=== PATIENT | female | born 1960 | race Caucasian/White ===

== ENCOUNTER 2017-07-18 14:17 | Inpatient (IN) | payer MEDICAID ==
[~2017-07-18] VITALS: Ht 157.5 cm; Wt 77.3 kg
[2017-07-18 17:00] VITALS: BP 144/68
[2017-07-18] MEDS ORDERED: FLUT100D2 INH (17:56)
[2017-07-18] MEDS ORDERED: ALBU18HF2 INH (17:56)
[2017-07-18] MEDS ORDERED: OXYB5TAB29 PO (17:56)
[2017-07-18] MEDS ORDERED: ESCI10TA54 PO (17:56)
[2017-07-18] MEDS ORDERED: IPRA3AMP IH (17:56)
[2017-07-18 18:00] VITALS: BP 139/72
[2017-07-18] MEDS ORDERED: levoFLOXACIN-Levaquin 750MG/D5 150 ML IV STA (18:13)
[2017-07-18] MEDS ORDERED: magnesium hydroxide 30ml (MOM) UD suspension PO PRN (18:15)
[2017-07-18] MEDS ORDERED: acetaminophen 325mg tablet PO PRN (18:15)
[2017-07-18] MEDS ORDERED: mag hydrox/Alum hydrox/simeth 30ml oral suspension PO PRN (18:15)
[2017-07-18] MEDS ORDERED: ondansetron/PF 4mg/2ml inj IV PRN (18:15)
[2017-07-18] MEDS ORDERED: HYDROcodone/acetaminophen 5mg/325mg tablet PO PRN (18:15)
[2017-07-18] MEDS: HYDROcodone/acetaminophen 10/325mg tab PO PRN ×2 (19:18→23:37)
[2017-07-18] MEDS: docusate sod 100mg capsule PO SCH (19:18)
[2017-07-18 19:43] LABS: ALBUMIN 1.7 G/DL (3.4-5.0); ANION GAP 8 (8-16); BLOOD UREA NITROGEN 12 MG/DL (7-18); CALCIUM 8.8 MG/DL (8.5-10.1); CHLORIDE 106 MMOL/L (99-107); GLUCOSE 271 MG/DL (70-104); POTASSIUM 3.9 MMOL/L (3.5-5.1); SODIUM 141 MMOL/L (135-145); TOTAL CARBON DIOXIDE 26.6 MMOL/L (24-32); eGFR 74 ML/MIN
[2017-07-18 19:45] LABS: INR 0.9 INR; PARTIAL THROMBOPLASTIN TIME 26 SECONDS (22-32); PROTHROMBIN TIME 9.8 SECONDS (9.0-12.0)
[2017-07-18] MEDS: BUDESONIDE 0.25 MG/2 ML AMPUL.NEB IH SCH (23:14)
[2017-07-19] VITALS: BP 134/75
[2017-07-19] MEDS: HYDROcodone/acetaminophen 10/325mg tab PO PRN ×5 (04:31→21:42)
[2017-07-19 05:24] LABS: BASOPHILS % (AUTO) 0 % (0-1); EOSINOPHILS # (AUTO) 0.6 X10'3 (0-0.9); EOSINOPHILS % (AUTO) 1.7 % (0-6); HEMOGLOBIN 13.1 g/dl (12.0-16.0); LYMPHOCYTES % (AUTO) 5.2 % (21-51); MEAN CORPUSCULAR HEMOGLOBIN 31.4 PG (27.0-31.0); MEAN CORPUSCULAR HGB CONC 33.5 % (33.0-36.5); MEAN CORPUSCULAR VOLUME 93.6 FL (78-98); MEAN PLATELET VOLUME 9.5 FL (7.4-10.4); MONOCYTES # (AUTO) 1.2 X10'3 (0-0.9); MONOCYTES % (AUTO) 3.1 % (2-12); NEUTROPHILS # (AUTO) 34.4 X10'3 (1.8-7.7); PLATELET COUNT 424 X10'3 (140-440); RED BLOOD COUNT 4.17 X10'6 (4.20-5.60); RED CELL DISTRIBUTION WIDTH 15.1 % (11.5-14.5)
[2017-07-19 05:50] LABS: WHITE BLOOD COUNT 38.2 X10'3 (4.5-11.0)
[2017-07-19 05:55] LABS: ALBUMIN 1.7 G/DL (3.4-5.0); ANION GAP 7 (8-16); BLOOD UREA NITROGEN 15 MG/DL (7-18); BUN/CREATININE RATIO 22.4 (6.6-38.0); CALCIUM 8.9 MG/DL (8.5-10.1); CHLORIDE 108 MMOL/L (99-107); CREATININE 0.67 MG/DL (0.40-0.90); GLUCOSE 135 MG/DL (70-104); POTASSIUM 4.2 MMOL/L (3.5-5.1); SODIUM 143 MMOL/L (135-145); TOTAL CARBON DIOXIDE 28.4 MMOL/L (24-32); eGFR > 90 ML/MIN
[2017-07-19 06:35] LABS: PLATELET ESTIMATE NORMAL; TOTAL CELLS COUNTED 100
[2017-07-19 06:36] LABS: TOXIC GRANULATION 1+
[2017-07-19 07:00] VITALS: BP 114/57
[2017-07-19] MEDS ORDERED: pneumococcal 23-VAL P-sac vacc 25 mcg/0.5ml vial IMVAC ONE (08:00)
[2017-07-19] MEDS: oxybutynin 5mg tablet PO SCH ×2 (08:20→20:04)
[2017-07-19] MEDS: docusate sod 100mg capsule PO SCH ×2 (08:20→20:04)
[2017-07-19] MEDS: citalopram 20mg tablet PO SCH (08:22)
[2017-07-19] MEDS: vancomycin/NS 1 GM ADD-VANTAGE 250 ML IV SCH ×2 (08:22→20:04)
[2017-07-19 11:24] VITALS: BP 114/67
[2017-07-19] MEDS: BUDESONIDE 0.25 MG/2 ML AMPUL.NEB IH SCH ×2 (12:41→20:00)
[2017-07-19] MEDS ORDERED: LIDOcaine 1%/PF (10mg/ml) 5ml vial ONE (14:41)
[2017-07-19] MEDS: levoFLOXACIN-Levaquin 750MG/D5 150 ML IV SCH (17:34)
[2017-07-19 20:00] VITALS: BP 118/66
[2017-07-19] MEDS: ipratropium/albuterol 3ml nebule NEB SCH ×2 (20:00→23:23)
[2017-07-19] MEDS: lactobacillus rhamnosus 10,000 MMU CELLS/CAPSULE PO SCH (20:04)
[2017-07-20] VITALS: BP 122/67
[2017-07-20] MEDS: ipratropium/albuterol 3ml nebule NEB SCH ×6 (03:08→23:50)
[2017-07-20] MEDS: HYDROcodone/acetaminophen 10/325mg tab PO PRN ×5 (04:40→21:38)
[2017-07-20 05:27] LABS: BASOPHILS % (AUTO) 0.2 % (0-1); EOSINOPHILS # (AUTO) 0.5 X10'3 (0-0.9); EOSINOPHILS % (AUTO) 2.3 % (0-6); HEMATOCRIT 39.7 % (35.0-45.0); HEMOGLOBIN 13.1 g/dl (12.0-16.0); LYMPHOCYTES # (AUTO) 2.7 X10'3 (1.1-4.8); LYMPHOCYTES % (AUTO) 12.4 % (21-51); MEAN CORPUSCULAR HEMOGLOBIN 30.9 PG (27.0-31.0); MEAN CORPUSCULAR HGB CONC 32.9 % (33.0-36.5); MEAN CORPUSCULAR VOLUME 93.7 FL (78-98); MEAN PLATELET VOLUME 9.1 FL (7.4-10.4); MONOCYTES # (AUTO) 1.3 X10'3 (0-0.9); MONOCYTES % (AUTO) 5.8 % (2-12); NEUTROPHILS # (AUTO) 17.4 X10'3 (1.8-7.7); NEUTROPHILS % (AUTO) 79.3 % (42-75); PLATELET COUNT 471 X10'3 (140-440); RED BLOOD COUNT 4.24 X10'6 (4.20-5.60)
[2017-07-20 05:41] LABS: ALANINE AMINOTRANSFERASE 18 U/L (12-78); ALBUMIN 1.5 G/DL (3.4-5.0); ALBUMIN/GLOBULIN RATIO 0.3 (1.1-1.5); ALKALINE PHOSPHATASE 106 IU/L (46-116); ANION GAP 7 (8-16); ASPARTATE AMINO TRANSFERASE 14 U/L (10-37); BILIRUBIN,TOTAL 0.2 MG/DL (0.1-1.0); BLOOD UREA NITROGEN 17 MG/DL (7-18); BUN/CREATININE RATIO 22.7 (6.6-38.0); CALCIUM 8.2 MG/DL (8.5-10.1); CHLORIDE 105 MMOL/L (99-107); CREATININE 0.75 MG/DL (0.40-0.90); GLUCOSE 107 MG/DL (70-104); POTASSIUM 3.4 MMOL/L (3.5-5.1); SODIUM 141 MMOL/L (135-145); TOTAL CARBON DIOXIDE 29.3 MMOL/L (24-32); TOTAL PROTEIN 5.8 G/DL (6.4-8.2); eGFR 80 ML/MIN
[2017-07-20 07:00] VITALS: BP 122/59
[2017-07-20] MEDS ORDERED: VANCOMYCIN LEVEL IV ONE (07:30)
[2017-07-20] MEDS: BUDESONIDE 0.25 MG/2 ML AMPUL.NEB IH SCH ×2 (08:13→20:51)
[2017-07-20] MEDS: levoFLOXACIN-Levaquin 750MG/D5 150 ML IV SCH (08:49)
[2017-07-20] MEDS: lactobacillus rhamnosus 10,000 MMU CELLS/CAPSULE PO SCH ×2 (08:50→19:51)
[2017-07-20] MEDS: oxybutynin 5mg tablet PO SCH ×2 (08:51→19:52)
[2017-07-20] MEDS: citalopram 20mg tablet PO SCH (08:51)
[2017-07-20] MEDS: docusate sod 100mg capsule PO SCH ×2 (08:51→19:52)
[2017-07-20] MEDS: vancomycin/NS 1 GM ADD-VANTAGE 250 ML IV SCH (09:58)
[2017-07-20 11:35] VITALS: BP 123/106
[2017-07-20] MEDS ORDERED: LIDOcaine 1%/PF (10mg/ml) 5ml vial ONE (11:44)
[2017-07-20 11:54] VITALS: BP 156/73
[2017-07-20 12:00] VITALS: BP 118/65
[2017-07-20 12:32] LABS: BFSOURCE RIGHT PLEURAL FLD; PLEURAL FLUID PH 7.051 (7.63-7.65)
[2017-07-20 13:05] LABS: GLUCOSE,BODY FLUID 49 MG/DL; LDH,BODY FLUID 2853 U/L; TOTAL PROTEIN,BODY FLUID 3.7 G/DL
[2017-07-20 13:06] LABS: BFAPPEAR CLOUDY; LYMPHOCYTES,BODY FLUID 3 %; MONOCYTES,BODY FLUID 6 %; NEUTROPHILS,BODY FLUID 91 %
[2017-07-20 13:07] LABS: BF RBC COUNT 750 /CU MM; BF WBC COUNT 1075 /CU MM (0-1000); BFCOLOR YELLOW; BFVOLUME 31 ML
[2017-07-20] MEDS ORDERED: enoxaparin 40mg/0.4ml syringe SUBCUT SCH (15:15)
[2017-07-20 18:00] VITALS: BP 101/52
[2017-07-20] MEDS: enoxaparin 40mg/0.4ml syringe SUBCUT SCH (21:34)
[2017-07-21] VITALS (10 sets, daily range): BP systolic 107–155; BP diastolic 54–77
[2017-07-21] MEDS: ipratropium/albuterol 3ml nebule NEB SCH ×6 (03:11→23:41)
[2017-07-21] MEDS: HYDROcodone/acetaminophen 10/325mg tab PO PRN ×4 (03:28→17:45)
[2017-07-21 04:54] LABS: BASOPHILS # (AUTO) 0.1 X10'3 (0-0.2); BASOPHILS % (AUTO) 0.4 % (0-1); EOSINOPHILS # (AUTO) 0.4 X10'3 (0-0.9); EOSINOPHILS % (AUTO) 2.2 % (0-6); HEMATOCRIT 39.9 % (35.0-45.0); HEMOGLOBIN 13.3 g/dl (12.0-16.0); LYMPHOCYTES # (AUTO) 2.1 X10'3 (1.1-4.8); MEAN CORPUSCULAR HEMOGLOBIN 31.2 PG (27.0-31.0); MEAN CORPUSCULAR HGB CONC 33.3 % (33.0-36.5); MEAN CORPUSCULAR VOLUME 93.6 FL (78-98); MEAN PLATELET VOLUME 8.9 FL (7.4-10.4); MONOCYTES # (AUTO) 1.3 X10'3 (0-0.9); MONOCYTES % (AUTO) 7.6 % (2-12); NEUTROPHILS # (AUTO) 13.6 X10'3 (1.8-7.7); NEUTROPHILS % (AUTO) 77.8 % (42-75); PLATELET COUNT 474 X10'3 (140-440); RED BLOOD COUNT 4.26 X10'6 (4.20-5.60); RED CELL DISTRIBUTION WIDTH 15.1 % (11.5-14.5); WHITE BLOOD COUNT 17.5 X10'3 (4.5-11.0)
[2017-07-21 05:35] LABS: ALANINE AMINOTRANSFERASE 24 U/L (12-78); ALBUMIN 1.6 G/DL (3.4-5.0); ALBUMIN/GLOBULIN RATIO 0.4 (1.1-1.5); ALKALINE PHOSPHATASE 103 IU/L (46-116); ANION GAP 7 (8-16); ASPARTATE AMINO TRANSFERASE 20 U/L (10-37); BILIRUBIN,TOTAL 0.3 MG/DL (0.1-1.0); BLOOD UREA NITROGEN 11 MG/DL (7-18); BUN/CREATININE RATIO 13.6 (6.6-38.0); CALCIUM 8.2 MG/DL (8.5-10.1); CHLORIDE 103 MMOL/L (99-107); CREATININE 0.81 MG/DL (0.40-0.90); GLUCOSE 137 MG/DL (70-104); POTASSIUM 3.9 MMOL/L (3.5-5.1); SODIUM 140 MMOL/L (135-145); TOTAL CARBON DIOXIDE 30.1 MMOL/L (24-32); TOTAL PROTEIN 5.8 G/DL (6.4-8.2); eGFR 73 ML/MIN
[2017-07-21] MEDS: docusate sod 100mg capsule PO SCH ×2 (08:03→20:06)
[2017-07-21] MEDS: lactobacillus rhamnosus 10,000 MMU CELLS/CAPSULE PO SCH ×2 (08:03→20:06)
[2017-07-21] MEDS: levoFLOXACIN-Levaquin 750MG/D5 150 ML IV SCH (08:03)
[2017-07-21] MEDS: citalopram 20mg tablet PO SCH (08:03)
[2017-07-21] MEDS: oxybutynin 5mg tablet PO SCH ×2 (08:04→20:06)
[2017-07-21] MEDS: enoxaparin 40mg/0.4ml syringe SUBCUT SCH (08:05)
[2017-07-21] MEDS: BUDESONIDE 0.25 MG/2 ML AMPUL.NEB IH SCH ×2 (08:12→18:59)
[2017-07-21] MEDS ORDERED: tPA-cathflo 2 MG/2 ml IV flush ICATH ONE (15:05)
[2017-07-21] MEDS: morphine 4 MG/ML inj SYRINge IV PRN (21:11)
[2017-07-22] MEDS: HYDROcodone/acetaminophen 10/325mg tab PO PRN ×5 (00:31→21:30)
[2017-07-22] MEDS: morphine 4 MG/ML inj SYRINge IV PRN ×3 (01:38→13:09)
[2017-07-22] MEDS: ipratropium/albuterol 3ml nebule NEB SCH ×5 (03:03→19:37)
[2017-07-22 06:00] VITALS: BP 109/64
[2017-07-22] MEDS ORDERED: VANCOMYCIN LEVEL IV ONE (07:30)
[2017-07-22 07:58] LABS: BASOPHILS # (AUTO) 0.1 X10'3 (0-0.2); BASOPHILS % (AUTO) 0.4 % (0-1); EOSINOPHILS # (AUTO) 0.3 X10'3 (0-0.9); EOSINOPHILS % (AUTO) 1.9 % (0-6); HEMATOCRIT 38.7 % (35.0-45.0); HEMOGLOBIN 12.8 g/dl (12.0-16.0); LYMPHOCYTES % (AUTO) 12.9 % (21-51); MEAN CORPUSCULAR HEMOGLOBIN 31.1 PG (27.0-31.0); MEAN CORPUSCULAR VOLUME 94.1 FL (78-98); MEAN PLATELET VOLUME 8.4 FL (7.4-10.4); MONOCYTES # (AUTO) 1.3 X10'3 (0-0.9); MONOCYTES % (AUTO) 8.4 % (2-12); NEUTROPHILS # (AUTO) 12.1 X10'3 (1.8-7.7); NEUTROPHILS % (AUTO) 76.4 % (42-75); PLATELET COUNT 503 X10'3 (140-440); RED BLOOD COUNT 4.11 X10'6 (4.20-5.60); RED CELL DISTRIBUTION WIDTH 14.9 % (11.5-14.5); WHITE BLOOD COUNT 15.8 X10'3 (4.5-11.0)
[2017-07-22] MEDS: BUDESONIDE 0.25 MG/2 ML AMPUL.NEB IH SCH ×2 (08:25→19:37)
[2017-07-22 08:29] LABS: ALANINE AMINOTRANSFERASE 21 U/L (12-78); ALBUMIN 1.6 G/DL (3.4-5.0); ALBUMIN/GLOBULIN RATIO 0.4 (1.1-1.5); ALKALINE PHOSPHATASE 93 IU/L (46-116); ANION GAP 3 (8-16); ASPARTATE AMINO TRANSFERASE 18 U/L (10-37); BILIRUBIN,TOTAL 0.3 MG/DL (0.1-1.0); BLOOD UREA NITROGEN 11 MG/DL (7-18); BUN/CREATININE RATIO 14.5 (6.6-38.0); CALCIUM 7.9 MG/DL (8.5-10.1); CHLORIDE 102 MMOL/L (99-107); CREATININE 0.76 MG/DL (0.40-0.90); GLUCOSE 143 MG/DL (70-104); POTASSIUM 3.8 MMOL/L (3.5-5.1); SODIUM 138 MMOL/L (135-145); TOTAL CARBON DIOXIDE 33.3 MMOL/L (24-32); TOTAL PROTEIN 5.9 G/DL (6.4-8.2); VANCOMYCIN,TROUGH 11.2 UG/ML (6.0-14.0); eGFR 78 ML/MIN
[2017-07-22] MEDS: lactobacillus rhamnosus 10,000 MMU CELLS/CAPSULE PO SCH ×2 (09:05→21:29)
[2017-07-22] MEDS: docusate sod 100mg capsule PO SCH ×2 (09:05→21:31)
[2017-07-22] MEDS: enoxaparin 40mg/0.4ml syringe SUBCUT SCH (09:05)
[2017-07-22] MEDS: oxybutynin 5mg tablet PO SCH ×2 (09:06→21:29)
[2017-07-22] MEDS: levoFLOXACIN-Levaquin 750MG/D5 150 ML IV SCH (09:06)
[2017-07-22] MEDS: citalopram 20mg tablet PO SCH (09:06)
[2017-07-22 10:00] VITALS: BP 103/38
[2017-07-22] MEDS: vancomycin/NS 1 GM ADD-VANTAGE 250 ML IV SCH (16:35)
[2017-07-22 18:00] VITALS: BP 85/45
[2017-07-22 22:00] VITALS: BP 105/44
[2017-07-23] MEDS: vancomycin/NS 1 GM ADD-VANTAGE 250 ML IV SCH ×4 (00:17→23:14)
[2017-07-23] MEDS: ipratropium/albuterol 3ml nebule NEB SCH ×7 (00:53→23:23)
[2017-07-23] MEDS: HYDROcodone/acetaminophen 10/325mg tab PO PRN ×4 (04:31→21:06)
[2017-07-23 06:00] VITALS: BP 101/45
[2017-07-23 06:57] LABS: BASOPHILS % (AUTO) 0.3 % (0-1); EOSINOPHILS # (AUTO) 0.3 X10'3 (0-0.9); EOSINOPHILS % (AUTO) 2.6 % (0-6); HEMATOCRIT 35.3 % (35.0-45.0); LYMPHOCYTES # (AUTO) 1.6 X10'3 (1.1-4.8); LYMPHOCYTES % (AUTO) 11.9 % (21-51); MEAN CORPUSCULAR HEMOGLOBIN 31.7 PG (27.0-31.0); MEAN CORPUSCULAR HGB CONC 34.1 % (33.0-36.5); MEAN PLATELET VOLUME 8.3 FL (7.4-10.4); MONOCYTES # (AUTO) 1.3 X10'3 (0-0.9); MONOCYTES % (AUTO) 9.8 % (2-12); NEUTROPHILS % (AUTO) 75.4 % (42-75); PLATELET COUNT 535 X10'3 (140-440); RED CELL DISTRIBUTION WIDTH 14.8 % (11.5-14.5); WHITE BLOOD COUNT 13.3 X10'3 (4.5-11.0)
[2017-07-23 07:12] LABS: ALANINE AMINOTRANSFERASE 18 U/L (12-78); ALBUMIN 1.4 G/DL (3.4-5.0); ALBUMIN/GLOBULIN RATIO 0.3 (1.1-1.5); ALKALINE PHOSPHATASE 98 IU/L (46-116); ANION GAP 3 (8-16); ASPARTATE AMINO TRANSFERASE 16 U/L (10-37); BILIRUBIN,TOTAL 0.2 MG/DL (0.1-1.0); BLOOD UREA NITROGEN 12 MG/DL (7-18); BUN/CREATININE RATIO 15.8 (6.6-38.0); CALCIUM 7.9 MG/DL (8.5-10.1); CHLORIDE 104 MMOL/L (99-107); CREATININE 0.76 MG/DL (0.40-0.90); GLUCOSE 143 MG/DL (70-104); POTASSIUM 3.9 MMOL/L (3.5-5.1); SODIUM 140 MMOL/L (135-145); TOTAL CARBON DIOXIDE 33.3 MMOL/L (24-32); TOTAL PROTEIN 5.8 G/DL (6.4-8.2); eGFR 78 ML/MIN
[2017-07-23] MEDS: BUDESONIDE 0.25 MG/2 ML AMPUL.NEB IH SCH ×2 (08:39→19:16)
[2017-07-23] MEDS: levoFLOXACIN-Levaquin 750MG/D5 150 ML IV SCH (09:22)
[2017-07-23] MEDS: citalopram 20mg tablet PO SCH (09:23)
[2017-07-23] MEDS: oxybutynin 5mg tablet PO SCH ×2 (09:23→21:07)
[2017-07-23] MEDS: lactobacillus rhamnosus 10,000 MMU CELLS/CAPSULE PO SCH ×2 (09:23→21:06)
[2017-07-23] MEDS: enoxaparin 40mg/0.4ml syringe SUBCUT SCH (09:23)
[2017-07-23] MEDS: docusate sod 100mg capsule PO SCH ×2 (09:24→21:06)
[2017-07-23] MEDS ORDERED: albuterol 2.5 MG/3 ML nebule NEB PRN (09:40)
[2017-07-23 10:00] VITALS: BP 111/40
[2017-07-23] MEDS ORDERED: alteplase 1 mg/ml 5ml syringe ICATH ONE (10:30)
[2017-07-23] MEDS ORDERED: NORMAL SALINE IV ONE (10:45)
[2017-07-23] MEDS ORDERED: ALTEPLASE IV ONE (10:45)
[2017-07-23] MEDS ORDERED: ANGIO IV ONE (10:45)
[2017-07-23] MEDS: morphine 4 MG/ML inj SYRINge IV PRN ×3 (14:07→22:44)
[2017-07-23] MEDS ORDERED: VANCOMYCIN LEVEL IV ONE (15:30)
[2017-07-23 15:42] VITALS: BP 106/54
[2017-07-23 18:30] VITALS: BP 115/70
[2017-07-23 22:00] VITALS: BP 118/60
[2017-07-24] MEDS: ipratropium/albuterol 3ml nebule NEB SCH ×6 (03:21→23:37)
[2017-07-24] MEDS: HYDROcodone/acetaminophen 10/325mg tab PO PRN ×4 (05:40→20:04)
[2017-07-24 06:00] VITALS: BP 118/49
[2017-07-24 06:39] LABS: ALANINE AMINOTRANSFERASE 16 U/L (12-78); ALBUMIN 1.8 G/DL (3.4-5.0); ALBUMIN/GLOBULIN RATIO 0.4 (1.1-1.5); ALKALINE PHOSPHATASE 76 IU/L (46-116); ANION GAP 4 (8-16); ASPARTATE AMINO TRANSFERASE 19 U/L (10-37); BILIRUBIN,TOTAL 0.7 MG/DL (0.1-1.0); BLOOD UREA NITROGEN 11 MG/DL (7-18); BUN/CREATININE RATIO 13.9 (6.6-38.0); CALCIUM 8.2 MG/DL (8.5-10.1); CHLORIDE 99 MMOL/L (99-107); CREATININE 0.79 MG/DL (0.40-0.90); GLUCOSE 144 MG/DL (70-104); POTASSIUM 4.8 MMOL/L (3.5-5.1); SODIUM 135 MMOL/L (135-145); TOTAL CARBON DIOXIDE 31.7 MMOL/L (24-32); TOTAL PROTEIN 6.9 G/DL (6.4-8.2); eGFR 75 ML/MIN
[2017-07-24] MEDS: vancomycin/NS 1 GM ADD-VANTAGE 250 ML IV SCH ×3 (07:57→23:21)
[2017-07-24] MEDS: lactobacillus rhamnosus 10,000 MMU CELLS/CAPSULE PO SCH ×2 (07:57→20:03)
[2017-07-24] MEDS: docusate sod 100mg capsule PO SCH ×2 (07:57→20:03)
[2017-07-24] MEDS: oxybutynin 5mg tablet PO SCH ×2 (07:57→20:03)
[2017-07-24] MEDS: citalopram 20mg tablet PO SCH (07:57)
[2017-07-24] MEDS: enoxaparin 40mg/0.4ml syringe SUBCUT SCH (07:58)
[2017-07-24] MEDS: BUDESONIDE 0.25 MG/2 ML AMPUL.NEB IH SCH ×2 (07:59→19:27)
[2017-07-24 09:01] LABS: BASOPHILS % (AUTO) 0.1 % (0-1); EOSINOPHILS # (AUTO) 0.5 X10'3 (0-0.9); EOSINOPHILS % (AUTO) 1.7 % (0-6); HEMATOCRIT 38.6 % (35.0-45.0); HEMOGLOBIN 12.8 g/dl (12.0-16.0); LYMPHOCYTES # (AUTO) 1.1 X10'3 (1.1-4.8); LYMPHOCYTES % (AUTO) 4.1 % (21-51); MEAN CORPUSCULAR HEMOGLOBIN 31.2 PG (27.0-31.0); MEAN CORPUSCULAR HGB CONC 33.3 % (33.0-36.5); MEAN CORPUSCULAR VOLUME 93.7 FL (78-98); MEAN PLATELET VOLUME 8.8 FL (7.4-10.4); MONOCYTES # (AUTO) 1.7 X10'3 (0-0.9); MONOCYTES % (AUTO) 6.5 % (2-12); NEUTROPHILS # (AUTO) 22.8 X10'3 (1.8-7.7); NEUTROPHILS % (AUTO) 87.6 % (42-75); PLATELET COUNT 661 X10'3 (140-440); RED BLOOD COUNT 4.11 X10'6 (4.20-5.60); RED CELL DISTRIBUTION WIDTH 14.7 % (11.5-14.5)
[2017-07-24 09:19] LABS: TOTAL CELLS COUNTED 100
[2017-07-24 09:21] LABS: LARGE PLATELETS FEW; PLATELET ESTIMATE INCREASED
[2017-07-24 09:22] LABS: ROULEAUX 1+
[2017-07-24 10:00] VITALS: BP 99/34
[2017-07-24 10:13] LABS: BASOPHILS % (AUTO) 0.1 % (0-1); EOSINOPHILS # (AUTO) 0.5 X10'3 (0-0.9); EOSINOPHILS % (AUTO) 1.8 % (0-6); HEMATOCRIT 35.7 % (35.0-45.0); HEMOGLOBIN 11.8 g/dl (12.0-16.0); LYMPHOCYTES # (AUTO) 1.4 X10'3 (1.1-4.8); LYMPHOCYTES % (AUTO) 5.5 % (21-51); MEAN CORPUSCULAR HEMOGLOBIN 30.6 PG (27.0-31.0); MEAN CORPUSCULAR VOLUME 92.7 FL (78-98); MEAN PLATELET VOLUME 8.1 FL (7.4-10.4); MONOCYTES % (AUTO) 7.6 % (2-12); PLATELET COUNT 616 X10'3 (140-440); RED BLOOD COUNT 3.85 X10'6 (4.20-5.60); RED CELL DISTRIBUTION WIDTH 14.7 % (11.5-14.5)
[2017-07-24 10:17] LABS: WHITE BLOOD COUNT 25.9 X10'3 (4.5-11.0)
[2017-07-24] MEDS: levoFLOXACIN 750MG TABLET PO SCH (11:28)
[2017-07-24 18:30] VITALS: BP 102/38
[2017-07-24 22:00] VITALS: BP 101/38
[2017-07-24] MEDS ORDERED: VANCOMYCIN LEVEL IV ONE (22:30)
[2017-07-25] MEDS: HYDROcodone/acetaminophen 10/325mg tab PO PRN ×6 (00:02→20:21)
[2017-07-25] MEDS: ipratropium/albuterol 3ml nebule NEB SCH ×5 (04:10→20:20)
[2017-07-25 05:24] LABS: BASOPHILS # (AUTO) 0.1 X10'3 (0-0.2); BASOPHILS % (AUTO) 0.5 % (0-1); EOSINOPHILS # (AUTO) 0.3 X10'3 (0-0.9); EOSINOPHILS % (AUTO) 1.6 % (0-6); HEMATOCRIT 31.6 % (35.0-45.0); HEMOGLOBIN 10.4 g/dl (12.0-16.0); LYMPHOCYTES # (AUTO) 1.8 X10'3 (1.1-4.8); LYMPHOCYTES % (AUTO) 11.2 % (21-51); MEAN CORPUSCULAR HGB CONC 33.1 % (33.0-36.5); MEAN CORPUSCULAR VOLUME 93.8 FL (78-98); MEAN PLATELET VOLUME 8.3 FL (7.4-10.4); MONOCYTES # (AUTO) 1.8 X10'3 (0-0.9); MONOCYTES % (AUTO) 11.2 % (2-12); NEUTROPHILS # (AUTO) 12.4 X10'3 (1.8-7.7); NEUTROPHILS % (AUTO) 75.5 % (42-75); PLATELET COUNT 547 X10'3 (140-440); RED BLOOD COUNT 3.37 X10'6 (4.20-5.60); RED CELL DISTRIBUTION WIDTH 14.3 % (11.5-14.5); WHITE BLOOD COUNT 16.4 X10'3 (4.5-11.0)
[2017-07-25 05:59] LABS: ALANINE AMINOTRANSFERASE 20 U/L (12-78); ALBUMIN 1.4 G/DL (3.4-5.0); ALBUMIN/GLOBULIN RATIO 0.3 (1.1-1.5); ALKALINE PHOSPHATASE 103 IU/L (46-116); ANION GAP 5 (8-16); ASPARTATE AMINO TRANSFERASE 27 U/L (10-37); BILIRUBIN,TOTAL 0.2 MG/DL (0.1-1.0); BLOOD UREA NITROGEN 14 MG/DL (7-18); BUN/CREATININE RATIO 17.7 (6.6-38.0); CALCIUM 7.9 MG/DL (8.5-10.1); CHLORIDE 102 MMOL/L (99-107); CREATININE 0.79 MG/DL (0.40-0.90); GLUCOSE 144 MG/DL (70-104); POTASSIUM 3.9 MMOL/L (3.5-5.1); SODIUM 140 MMOL/L (135-145); TOTAL CARBON DIOXIDE 33.4 MMOL/L (24-32); TOTAL PROTEIN 5.9 G/DL (6.4-8.2); eGFR 75 ML/MIN
[2017-07-25 06:00] VITALS: BP 100/45
[2017-07-25] MEDS: BUDESONIDE 0.25 MG/2 ML AMPUL.NEB IH SCH ×2 (07:41→20:20)
[2017-07-25] MEDS: enoxaparin 40mg/0.4ml syringe SUBCUT SCH (07:59)
[2017-07-25] MEDS: citalopram 20mg tablet PO SCH (08:00)
[2017-07-25] MEDS: lactobacillus rhamnosus 10,000 MMU CELLS/CAPSULE PO SCH ×2 (08:00→20:19)
[2017-07-25] MEDS: oxybutynin 5mg tablet PO SCH ×2 (08:00→20:19)
[2017-07-25] MEDS: docusate sod 100mg capsule PO SCH ×2 (08:00→20:19)
[2017-07-25 10:00] VITALS: BP 99/39
[2017-07-25] MEDS: vancomycin inj 1,250 MG in normal saline 250ml IV soln 250 ML IV SCH ×2 (11:16→17:43)
[2017-07-25] MEDS: levoFLOXACIN 750MG TABLET PO SCH (11:16)
[2017-07-25 18:00] VITALS: BP 102/47
[2017-07-25 22:00] VITALS: BP 96/45
[2017-07-26] MEDS: vancomycin inj 1,250 MG in normal saline 250ml IV soln 250 ML IV SCH ×2 (01:05→07:25)
[2017-07-26] MEDS: ipratropium/albuterol 3ml nebule NEB SCH ×7 (01:21→23:44)
[2017-07-26] MEDS: HYDROcodone/acetaminophen 10/325mg tab PO PRN ×4 (02:51→20:02)
[2017-07-26 06:00] VITALS: BP 93/51
[2017-07-26] MEDS: lactobacillus rhamnosus 10,000 MMU CELLS/CAPSULE PO SCH ×2 (07:24→20:02)
[2017-07-26] MEDS: citalopram 20mg tablet PO SCH (07:24)
[2017-07-26] MEDS: docusate sod 100mg capsule PO SCH ×2 (07:24→20:02)
[2017-07-26] MEDS: enoxaparin 40mg/0.4ml syringe SUBCUT SCH (07:25)
[2017-07-26] MEDS: oxybutynin 5mg tablet PO SCH ×2 (07:25→20:03)
[2017-07-26] MEDS ORDERED: VANCOMYCIN LEVEL IV NR (07:30)
[2017-07-26] MEDS: BUDESONIDE 0.25 MG/2 ML AMPUL.NEB IH SCH ×2 (07:36→20:09)
[2017-07-26 08:01] LABS: BASOPHILS # (AUTO) 0.1 X10'3 (0-0.2); BASOPHILS % (AUTO) 0.6 % (0-1); EOSINOPHILS # (AUTO) 0.3 X10'3 (0-0.9); HEMATOCRIT 31.7 % (35.0-45.0); HEMOGLOBIN 10.5 g/dl (12.0-16.0); LYMPHOCYTES # (AUTO) 1.9 X10'3 (1.1-4.8); LYMPHOCYTES % (AUTO) 15.1 % (21-51); MEAN CORPUSCULAR HEMOGLOBIN 31.1 PG (27.0-31.0); MEAN CORPUSCULAR HGB CONC 33.2 % (33.0-36.5); MEAN CORPUSCULAR VOLUME 93.6 FL (78-98); MONOCYTES # (AUTO) 1.6 X10'3 (0-0.9); MONOCYTES % (AUTO) 12.5 % (2-12); NEUTROPHILS # (AUTO) 8.8 X10'3 (1.8-7.7); NEUTROPHILS % (AUTO) 69.8 % (42-75); PLATELET COUNT 613 X10'3 (140-440); RED BLOOD COUNT 3.38 X10'6 (4.20-5.60); RED CELL DISTRIBUTION WIDTH 14.2 % (11.5-14.5); WHITE BLOOD COUNT 12.6 X10'3 (4.5-11.0)
[2017-07-26 08:06] LABS: ALBUMIN 1.4 G/DL (3.4-5.0); ANION GAP 4 (8-16); BLOOD UREA NITROGEN 10 MG/DL (7-18); BUN/CREATININE RATIO 13.9 (6.6-38.0); CALCIUM 8.1 MG/DL (8.5-10.1); CHLORIDE 103 MMOL/L (99-107); CREATININE 0.72 MG/DL (0.40-0.90); GLUCOSE 99 MG/DL (70-104); POTASSIUM 4.3 MMOL/L (3.5-5.1); SODIUM 140 MMOL/L (135-145); TOTAL CARBON DIOXIDE 33.3 MMOL/L (24-32); eGFR 83 ML/MIN
[2017-07-26 08:08] LABS: VANCOMYCIN,TROUGH 21.6 UG/ML (6.0-14.0)
[2017-07-26 08:15] LABS: PLATELET ESTIMATE INCREASED
[2017-07-26 10:00] VITALS: BP 111/48
[2017-07-26] MEDS: levoFLOXACIN 750MG TABLET PO SCH (10:48)
[2017-07-26] MEDS: vancomycin/NS 1 GM ADD-VANTAGE 250 ML IV SCH (16:11)
[2017-07-26 18:30] VITALS: BP 98/55
[2017-07-26 22:30] VITALS: BP 110/46
[2017-07-27] MEDS: vancomycin/NS 1 GM ADD-VANTAGE 250 ML IV SCH ×3 (00:38→16:53)
[2017-07-27] MEDS: HYDROcodone/acetaminophen 10/325mg tab PO PRN ×6 (01:15→23:02)
[2017-07-27 01:28] LABS: ALBUMIN 1.5 G/DL (3.4-5.0); ANION GAP 6 (8-16); BLOOD UREA NITROGEN 11 MG/DL (7-18); BUN/CREATININE RATIO 14.1 (6.6-38.0); CALCIUM 8.1 MG/DL (8.5-10.1); CHLORIDE 102 MMOL/L (99-107); CREATININE 0.78 MG/DL (0.40-0.90); GLUCOSE 141 MG/DL (70-104); POTASSIUM 3.8 MMOL/L (3.5-5.1); SODIUM 140 MMOL/L (135-145); TOTAL CARBON DIOXIDE 31.8 MMOL/L (24-32); eGFR 76 ML/MIN
[2017-07-27 02:02] LABS: BASOPHILS # (AUTO) 0.1 X10'3 (0-0.2); BASOPHILS % (AUTO) 0.5 % (0-1); EOSINOPHILS # (AUTO) 0.1 X10'3 (0-0.9); EOSINOPHILS % (AUTO) 1.1 % (0-6); HEMATOCRIT 30.2 % (35.0-45.0); HEMOGLOBIN 10.1 g/dl (12.0-16.0); LYMPHOCYTES # (AUTO) 2.2 X10'3 (1.1-4.8); LYMPHOCYTES % (AUTO) 17.8 % (21-51); MEAN CORPUSCULAR HEMOGLOBIN 31.4 PG (27.0-31.0); MEAN CORPUSCULAR HGB CONC 33.4 % (33.0-36.5); MEAN CORPUSCULAR VOLUME 94.1 FL (78-98); MEAN PLATELET VOLUME 8.6 FL (7.4-10.4); MONOCYTES # (AUTO) 1.2 X10'3 (0-0.9); MONOCYTES % (AUTO) 9.5 % (2-12); NEUTROPHILS # (AUTO) 8.8 X10'3 (1.8-7.7); NEUTROPHILS % (AUTO) 71.1 % (42-75); PLATELET COUNT 604 X10'3 (140-440); RED BLOOD COUNT 3.21 X10'6 (4.20-5.60); RED CELL DISTRIBUTION WIDTH 14.6 % (11.5-14.5); WHITE BLOOD COUNT 12.4 X10'3 (4.5-11.0)
[2017-07-27 06:00] VITALS: BP 113/52
[2017-07-27] MEDS ORDERED: VANCOMYCIN LEVEL IV NR (07:30)
[2017-07-27] MEDS: docusate sod 100mg capsule PO SCH ×2 (08:00→20:42)
[2017-07-27] MEDS: lactobacillus rhamnosus 10,000 MMU CELLS/CAPSULE PO SCH ×2 (08:25→20:42)
[2017-07-27] MEDS: oxybutynin 5mg tablet PO SCH ×2 (08:26→20:43)
[2017-07-27] MEDS: citalopram 20mg tablet PO SCH (08:26)
[2017-07-27] MEDS: enoxaparin 40mg/0.4ml syringe SUBCUT SCH (08:28)
[2017-07-27] MEDS: BUDESONIDE 0.25 MG/2 ML AMPUL.NEB IH SCH ×2 (08:41→19:40)
[2017-07-27] MEDS: ipratropium/albuterol 3ml nebule NEB SCH ×5 (08:41→23:34)
[2017-07-27 10:00] VITALS: BP 99/41
[2017-07-27] MEDS: levoFLOXACIN 750MG TABLET PO SCH (11:33)
[2017-07-27 18:00] VITALS: BP 157/89
[2017-07-27] MEDS ORDERED: furosemide 40mg/4ml inj IV ONE (21:40)
[2017-07-27 22:00] VITALS: BP 103/43
[2017-07-28] MEDS: ipratropium/albuterol 3ml nebule NEB SCH ×6 (03:27→23:18)
[2017-07-28] MEDS: HYDROcodone/acetaminophen 10/325mg tab PO PRN ×5 (03:45→21:25)
[2017-07-28 04:15] LABS: ABG BASE EXCESS 8.4 mmol/L (-2.0-3.0); ABG HCO3 33.8 mmol/L (22.0-26.0); ABG OXYGEN SATURATION 95.4 % (95-98); ABG PCO2 (T) 50.8 mmHg (32.0-45.0); ABG PH (T) 7.441 (7.350-7.450); ABG PO2 (T) 78.1 mmHg (83-108); FCOHb 0.3 % (0.5-1.5); FLOW 2 L/min; FO2Hb 95.1 % (94-100); TIDAL VOLUME 1 mL; TOTAL HEMOGLOBIN 11.4 G/dl (12.0-16.0)
[2017-07-28 06:00] VITALS: BP 113/49
[2017-07-28 06:34] LABS: ALBUMIN 1.7 G/DL (3.4-5.0); ANION GAP 5 (8-16); BLOOD UREA NITROGEN 11 MG/DL (7-18); BUN/CREATININE RATIO 12.8 (6.6-38.0); CALCIUM 8.2 MG/DL (8.5-10.1); CHLORIDE 102 MMOL/L (99-107); CREATININE 0.86 MG/DL (0.40-0.90); GLUCOSE 97 MG/DL (70-104); SODIUM 143 MMOL/L (135-145); TOTAL CARBON DIOXIDE 35.7 MMOL/L (24-32); eGFR 68 ML/MIN
[2017-07-28] MEDS: citalopram 20mg tablet PO SCH (07:31)
[2017-07-28] MEDS: docusate sod 100mg capsule PO SCH ×2 (07:31→20:00)
[2017-07-28] MEDS: lactobacillus rhamnosus 10,000 MMU CELLS/CAPSULE PO SCH ×2 (07:31→20:00)
[2017-07-28] MEDS: oxybutynin 5mg tablet PO SCH ×2 (07:32→20:00)
[2017-07-28] MEDS: enoxaparin 40mg/0.4ml syringe SUBCUT SCH (07:33)
[2017-07-28] MEDS: BUDESONIDE 0.25 MG/2 ML AMPUL.NEB IH SCH ×2 (07:49→21:18)
[2017-07-28 10:00] VITALS: BP 97/38
[2017-07-28] MEDS: levoFLOXACIN 750MG TABLET PO SCH (12:40)
[2017-07-28 18:43] VITALS: BP 96/34
[2017-07-28 22:36] VITALS: BP 105/45
[2017-07-29] MEDS: ipratropium/albuterol 3ml nebule NEB SCH ×3 (03:00→11:12)
[2017-07-29] MEDS: HYDROcodone/acetaminophen 10/325mg tab PO PRN ×3 (04:58→14:44)
[2017-07-29 06:00] VITALS: BP 134/48
[2017-07-29 08:07] LABS: ALBUMIN 1.7 G/DL (3.4-5.0); ANION GAP 6 (8-16); BLOOD UREA NITROGEN 12 MG/DL (7-18); BUN/CREATININE RATIO 13.5 (6.6-38.0); CALCIUM 8.4 MG/DL (8.5-10.1); CHLORIDE 105 MMOL/L (99-107); CREATININE 0.89 MG/DL (0.40-0.90); GLUCOSE 98 MG/DL (70-104); POTASSIUM 4.4 MMOL/L (3.5-5.1); SODIUM 143 MMOL/L (135-145); TOTAL CARBON DIOXIDE 32.4 MMOL/L (24-32); eGFR 65 ML/MIN
[2017-07-29 08:23] LABS: BASOPHILS # (AUTO) 0.1 X10'3 (0-0.2); BASOPHILS % (AUTO) 0.9 % (0-1); EOSINOPHILS # (AUTO) 0.1 X10'3 (0-0.9); EOSINOPHILS % (AUTO) 1.5 % (0-6); HEMATOCRIT 31.6 % (35.0-45.0); HEMOGLOBIN 10.7 g/dl (12.0-16.0); LYMPHOCYTES # (AUTO) 1.5 X10'3 (1.1-4.8); LYMPHOCYTES % (AUTO) 15.3 % (21-51); MEAN CORPUSCULAR HEMOGLOBIN 31.4 PG (27.0-31.0); MEAN CORPUSCULAR HGB CONC 33.7 % (33.0-36.5); MEAN CORPUSCULAR VOLUME 93.1 FL (78-98); MEAN PLATELET VOLUME 8.1 FL (7.4-10.4); MONOCYTES # (AUTO) 1.1 X10'3 (0-0.9); MONOCYTES % (AUTO) 10.5 % (2-12); NEUTROPHILS # (AUTO) 7.2 X10'3 (1.8-7.7); NEUTROPHILS % (AUTO) 71.8 % (42-75); PLATELET COUNT 588 X10'3 (140-440); RED CELL DISTRIBUTION WIDTH 14.3 % (11.5-14.5); WHITE BLOOD COUNT 10.1 X10'3 (4.5-11.0)
[2017-07-29] MEDS: oxybutynin 5mg tablet PO SCH (09:30)
[2017-07-29] MEDS: citalopram 20mg tablet PO SCH (09:30)
[2017-07-29] MEDS: enoxaparin 40mg/0.4ml syringe SUBCUT SCH (09:30)
[2017-07-29] MEDS: levoFLOXACIN 750MG TABLET PO SCH (09:31)
[2017-07-29] MEDS: docusate sod 100mg capsule PO SCH (09:31)
[2017-07-29] MEDS: lactobacillus rhamnosus 10,000 MMU CELLS/CAPSULE PO SCH (09:31)
[2017-07-29 10:00] VITALS: BP 121/61
[2017-07-29] MEDS ORDERED: LEVO500T2 PO (10:49)
== END 2017-07-29 15:00 | disposition home or self-care (01) | DRG 139 ==
LOC: SUR 3N 16:50 → ORTHO 4S 07-21 11:12
PROVIDERS: ADMIT Family Medicine; ATTEND Internal Medicine
PROC: 0W993ZX Drainage of Right Pleural Cavity, Percutaneous Approach, Diagnostic (ICD-10-PCS; principal; 2017-07-20)
PROC: 0W9930Z Drainage of Right Pleural Cavity with Drainage Device, Percutaneous Approach (ICD-10-PCS; 2017-07-21)
PROC: 3E0L3GC Introduction of Other Therapeutic Substance into Pleural Cavity, Percutaneous Approach (ICD-10-PCS; 2017-07-22)
DX: J18.9 Pneumonia, unspecified organism (principal); J96.21 Acute and chronic respiratory failure with hypoxia; J86.9 Pyothorax without fistula; J90 Pleural effusion, not elsewhere classified; J44.0 Chronic obstructive pulmonary disease with (acute) lower respiratory infection; F17.210 Nicotine dependence, cigarettes, uncomplicated; J44.1 Chronic obstructive pulmonary disease with (acute) exacerbation; F32.9 Major depressive disorder, single episode, unspecified; Z98.891 History of uterine scar from previous surgery; Z79.899 Other long term (current) drug therapy
CPT/HCPCS: 32555; 32557; 36415; 36600; 71045; 71046; 71250; 80048; 80053; 80202; 82803; 82945; 83036; 83615; 83986; 84157; 85018; 85025; 85610; 85730; 87040; 87070; 87075; 89051; 90732; 93306; 94640; 94760; 97110; 97116; 97162; 97530; A6222; A6257; A6446; A6449; J1650; J1940; J1956; J2001; J2270; J2997; J3370; J7030; J7040

== ENCOUNTER 2021-10-21 11:16 | Day surgery (SDC) | payer MEDICAID ==
[~2021-10-21] VITALS: Ht 160 cm; Wt 88.6 kg
[~2021-10-21 11:16] MED LIST: ALBU18HF2 INH; ESCI-8 PO; FLUT100D2 INH; IPRA3AMP31 IH; OXYB5TAB29 PO
[2021-10-21 11:34] VITALS: BP 107/93
[2021-10-21] MEDS ORDERED: ESCI20TA PO (11:38)
[2021-10-21] MEDS ORDERED: PANT-47 PO (11:38)
[2021-10-21] MEDS ORDERED: FAMO40TA73 PO (11:39)
[2021-10-21] MEDS ORDERED: OXYB10TA4 PO (11:39)
[2021-10-21] MEDS ORDERED: MONT10TA21 PO (11:40)
[2021-10-21] MEDS ORDERED: LOSA50TA3 PO (11:40)
[2021-10-21] MEDS ORDERED: ROSU10TA2 PO (11:41)
[2021-10-21] MEDS ORDERED: FLUO40CA10 PO (11:41)
[2021-10-21] MEDS ORDERED: FLUT1BLS16 (11:42)
[2021-10-21] MEDS ORDERED: CHLO25TA10 PO (11:42)
[2021-10-21] MEDS ORDERED: MIDAZolam 1 MG/ML 5ML VIAL ONE (12:19)
[2021-10-21] MEDS ORDERED: fentaNYL/PF 50MCG/1 ML 2ML syringe ONE (12:19)
[2021-10-21] MEDS ORDERED: LIDOcaine Viscous 15ml cup ONE (12:19)
[2021-10-21 12:55] VITALS: BP 124/63
[2021-10-21 13:05] VITALS: BP 123/53
[2021-10-21 13:15] VITALS: BP 117/75
[2021-10-21 13:25] VITALS: BP 110/72
== END 2021-10-21 13:25 | disposition home or self-care (01) ==
LOC: GI LAB 11:16
PROVIDERS: ATTEND Internal Medicine Gastroenterology
DX: K29.70 Gastritis, unspecified, without bleeding (principal)
CPT/HCPCS: 43239; 99152; J2250; J3010; J7030; Z7512; A4620